=== PATIENT | male | born 1985 | race African-American/Black ===

== ENCOUNTER 2017-07-14 03:25 | Emergency (ER) | payer SELFPAY ==
[~2017-07-14] VITALS: Ht 180.3 cm; Wt 68.0 kg
[~2017-07-14 03:25] MED LIST: DOXYCYCLINE HY100 MG PO; NORCO 5-325 TA1 EACH PO; PENICILLIN V P500 MG PO
[2017-07-14] MEDS ORDERED: NORCO 5-325 TA1 EACH PO (04:05)
[2017-07-14] MEDS ORDERED: CEPHALEXIN500 MG PO (04:05)
== END 2017-07-14 04:10 | disposition home or self-care (01) ==
LOC: ED 03:25
DX: H66.92 Otitis media, unspecified, left ear (principal); F17.200 Nicotine dependence, unspecified, uncomplicated
CPT/HCPCS: 99283

== ENCOUNTER 2017-07-20 07:41 | Emergency (ER) | payer OTHER ==
[~2017-07-20] VITALS: Ht 180.3 cm; Wt 68.0 kg
[~2017-07-20 07:41] MED LIST changes: +CEPHALEXIN500 MG PO
== END 2017-07-20 08:00 | disposition home or self-care (01) ==
LOC: ED 07:41
DX: M54.9 Dorsalgia, unspecified (principal); Z00.8 Encounter for other general examination; W11.XXXA Fall on and from ladder, initial encounter

== ENCOUNTER 2018-09-20 21:15 | Emergency (ER) | payer BC ==
[~2018-09-20] VITALS: Ht 180.3 cm; Wt 68.0 kg
--- OUTSIDE RECORDS SUMMARY | 2018-09-20 21:20 | XMS ---
PreManage Notification: ABBY FAJARDO Security Rag Inspector Events No recent Security Events currently on file CRITERIA MET - Group Notification CARE PROVIDERS There are no care providers on record at this time. Carlitos has no Care Guidelines for this patient. Efrain VISIT COUNT (12 MO.) 1 YESSENIA Marte TOTAL 1 NOTE: Visits indicate total known visits. ED/UCC VISIT TRACKING (12 MO.) 09/20/2018 21:15 YESSENIA Barba OR TYPE: Emergency COMPLAINT: - BLOOD IN STOOL INPATIENT VISIT TRACKING (12 MO.) No inpatient visits to display in this time frame [email or web address]
[2018-09-20] MEDS ORDERED: ANUSOL-HC25 MG PR (22:59)
[2018-09-20] MEDS ORDERED: OMEPRAZOLE20 MG PO (22:59)
== END 2018-09-20 23:14 | disposition home or self-care (01) ==
LOC: ED 21:15
DX: K30 Functional dyspepsia (principal); J45.909 Unspecified asthma, uncomplicated; F17.200 Nicotine dependence, unspecified, uncomplicated
CPT/HCPCS: 80053; 81001; 83690; 85025; 96361; 96374; 99284-25; C9113; J7030